=== PATIENT | female | born 1990 | race Caucasian/White ===

== ENCOUNTER 2022-01-08 17:52 | Emergency (ER) | payer MEDICAID ==
[~2022-01-08] VITALS: Ht 165.1 cm; Wt 62.6 kg
--- NOTE | 2022-01-08 17:52 | NUR ---
PT BIB SELF C/O "HEADACHE, CHEST PAIN, HIGH PULSE RATE AND LOW B/P" X 5 DAYS. PT IS AAOX4, NOT IN RESPIRATORY DISTRESS, HOOKED TO MANAGER SIX SIGMA, V/S STABLE, KEPT RESTED AND COMFORTABLE. WILL CONTINUE TO MONITOR.
--- NOTE | 2022-01-08 18:45 | NUR ---
AT BEDSIDE FOR EVAL.
[2022-01-08] MEDS ORDERED: IV NS 0.9% 1,000 ML IV ONE (19:00)
[2022-01-08 20:03] LABS: CALCIUM, SERUM 8.5 mg/dL (8.5-10.1); CARBON DIOXIDE 31 mmol/L (21-32); CHLORIDE 105 mmol/L (98-107); CREATININE 0.5 mg/dL (0.6-1.3); GLUCOSE 99 mg/dL (74-106); POTASSIUM 3.9 mmol/L (3.5-5.1); SODIUM SERUM 139 mmol/L (136-145); UREA NITROGEN, BLOOD 7 mg/dL (7-18)
[2022-01-08 20:17] LABS: THYROID STIMULATING HORMONE 0.751 uIU/mL (0.358-3.74)
[2022-01-08 20:28] LABS: BASOPHILS % (AUTO) 0.4 % (0.0-2.0); EOSINOPHILS % (AUTO) 0.4 % (0.0-6.0); HEMATOCRIT 34 % (33-45); HEMOGLOBIN 11.8 g/dL (11.5-14.8); LYMPHOCYTES # (AUTO) 2.2 K/uL (0.8-4.8); LYMPHOCYTES % (AUTO) 49.1 % (20.0-44.0); MEAN CORPUSCULAR HGB CONC 35 g/dl (31.0-36.0); MEAN CORPUSCULAR VOLUME 86 fL (82-100); MONOCYTES # (AUTO) 0.3 K/uL (0.1-1.30); NEUTROPHILS # (AUTO) 1.9 K/uL (1.8-8.9); NEUTROPHILS % (AUTO) 43.1 % (43.0-81.0); PLATELET COUNT (AUTO) 165 K/uL (150-450); RED BLOOD CELL COUNT(AUTO) 3.97 MIL/uL (4.0-5.2); WHITE BLOOD COUNT (AUTO) 4.5 K/uL (4.3-11.0)
[2022-01-08 21:02] VITALS: BP 122/70
--- NOTE | 2022-01-08 21:02 | NUR ---
Patient discharged to home in stable condition. Written and verbal after care instructions given. Patient verbalizes understanding of instruction.
[2022-01-08 21:31] LABS: BAND % (MANUAL) 1 % (0.0-5.0); LYMPHOCYTES % (MANUAL) 42 % (16-48); MONOCYTES % (MANUAL) 5 % (0-11.0); NEUTROPHILS % (MANUAL) 52 (42-76)
== END 2022-01-08 21:08 | disposition home or self-care (01) ==
LOC: ER 17:52
DX: R00.2 Palpitations (principal); R51.9 Headache, unspecified
CPT/HCPCS: 36415; 71045; 80048; 83735; 84439; 84443; 84484; 84703; 85007; 85025; 93005 ×2; 96360; 99285; J7030

== ENCOUNTER 2024-12-31 14:49 | Emergency (ER) | payer MEDICAID ==
[~2024-12-31] VITALS: Ht 167.6 cm; Wt 61.2 kg
[2024-12-31 15:03] VITALS: TEMP 97.9
[2024-12-31 17:24] VITALS: BP 120/75; O2SAT 98
== END 2024-12-31 16:25 | disposition home or self-care (01) ==
LOC: ER 15:02
DX: S53.401A Unspecified sprain of right elbow, initial encounter (principal); M25.511 Pain in right shoulder; W01.0XXA Fall on same level from slipping, tripping and stumbling without subsequent striking against object, initial encounter; Y93.89 Activity, other specified; Y92.89 Other specified places as the place of occurrence of the external cause; Y99.8 Other external cause status
CPT/HCPCS: 73030-TC; 73080-TC